=== PATIENT | male | born 1955 | race Caucasian/White ===

== ENCOUNTER 2016-04-04 | Outpatient (CLI) | payer MEDICAID | END 2016-04-04 16:48 | disposition EMS.NT | DX: Z03.89 Encounter for observation for other suspected diseases and conditions ruled out (principal) ==

== ENCOUNTER 2016-04-22 14:26 | Outpatient (CLI) | payer MEDICAID | END 2016-04-22 14:27 | disposition home or self-care (01) | DX: M19.012 Primary osteoarthritis, left shoulder (principal) ==

== ENCOUNTER 2016-07-15 02:54 | Outpatient (CLI) | payer MEDICAID | END 2016-07-15 02:55 | disposition critical access hospital (66) | LOC: EMS 02:54 | PROVIDERS: ATTEND Surgery | DX: S01.01XA Laceration without foreign body of scalp, initial encounter (principal); W18.30XA Fall on same level, unspecified, initial encounter; Y93.01 Activity, walking, marching and hiking; Y92.410 Unspecified street and highway as the place of occurrence of the external cause | CPT/HCPCS: A0425; A0429 ==

== ENCOUNTER 2016-07-15 03:12 | Emergency (ER) | payer MEDICAID ==
[2016-07-15] MEDS ORDERED: BACITRACIN OINT TOP STA (03:19)
[2016-07-15] MEDS ORDERED: TETANUS/DIPHTHERIA/PERTUSSIS 0.5 ML SYRINGE IM ONE ×2 (03:19→03:21)
[2016-07-15] MEDS ORDERED: LIDOCAINE 1%-EPI 1:100000 20 ML MDV ONE (03:41)
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
--- NOTE | 2016-07-15 04:44 | CT Preliminary Report ---
Exam: CT Head W/O IMPRESSION: No evidence of hemorrhage or other acute intra-cranial process. [facility] SITE ID: [id number]
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
[2016-07-15 04:57] VITALS: BP 132/75
== END 2016-07-15 05:06 | disposition home or self-care (01) ==
LOC: EDUNIT# → ED 03:12
DX: S01.01XA Laceration without foreign body of scalp, initial encounter (principal); W01.0XXA Fall on same level from slipping, tripping and stumbling without subsequent striking against object, initial encounter; Y93.01 Activity, walking, marching and hiking; Y92.481 Parking lot as the place of occurrence of the external cause; Z23 Encounter for immunization; I10 Essential (primary) hypertension; J44.9 Chronic obstructive pulmonary disease, unspecified; M19.90 Unspecified osteoarthritis, unspecified site; F17.200 Nicotine dependence, unspecified, uncomplicated
CPT/HCPCS: 12002; 70450; 90471; 99283; 99284

== ENCOUNTER 2016-10-08 10:13 | Outpatient (CLI) | payer MEDICAID ==
[2016-10-08 14:00] LABS: BASOPHILS # (AUTO) 0.1 10^3/uL (0.0-0.1); BASOPHILS % (AUTO) 1.2 %; EOSINOPHILS # (AUTO) 0.1 10^3/uL (0.0-0.7); EOSINOPHILS % (AUTO) 1.7 %; HCT - HEMATOCRIT 43.6 % (42.0-52.0); HGB - HEMOGLOBIN 14.7 g/dL (14.0-18.0); LYMPHOCYTES # (AUTO) 1.2 10^3/uL (1.5-3.5); LYMPHOCYTES % (AUTO) 19.8 %; MEAN CORPUSCULAR HEMOGLOBIN 30.5 pg (27.0-31.0); MEAN CORPUSCULAR HGB CONC 33.7 g/dL (32.0-36.0); MEAN CORPUSCULAR VOLUME 90.4 fL (80.0-94.0); MEAN PLATELET VOLUME 9.6 fL (7.4-11.4); MONOCYTES # (AUTO) 0.6 10^3/uL (0.0-1.0); MONOCYTES % (AUTO) 10.2 %; NEUTROPHILS # (AUTO) 3.9 10^3/uL (1.5-6.6); NEUTROPHILS % (AUTO) 67.1 %; RED BLOOD COUNT 4.82 10^6/uL (4.70-6.10); RED CELL DISTRIBUTION WIDTH 14.1 % (12.0-15.0); UNCORRECTED WHITE BLOOD COUNT 5.8 x10^3/uL; WHITE BLOOD COUNT 5.8 x10^3/uL (4.8-10.8)
[2016-10-08 14:24] LABS: ALBUMIN/GLOBULIN RATIO 1.1 (1.0-2.2); BUN - BLOOD UREA NITROGEN 12 mg/dL (6-20); CALCIUM 8.8 mg/dL (8.5-10.3); CARBON DIOXIDE - CO2 27 mmol/L (21-32); CHLORIDE 106 mmol/L (101-111); CHOL/HDL RATIO 3.8 (<5.0); CHOLESTEROL 188 mg/dL; CREATININE 0.8 mg/dL (0.6-1.2); GFR - MDRD 99 (>89); GLUCOSE 90 mg/dL (70-100); HDL CHOLESTEROL 50 mg/dL; POTASSIUM 3.8 mmol/L (3.5-5.0); SODIUM 139 mmol/L (135-145); TOTAL PROTEIN 7.5 g/dL (6.7-8.2)
[2016-10-08 14:40] LABS: LDL/HDL RATIO 2.5 (<3.6); TRIGLYCERIDES 55 mg/dL; VLDL CHOLESTEROL 11 mg/dL
== END 2016-10-08 10:14 | disposition home or self-care (01) ==
LOC: LAB.N 10:13
PROVIDERS: ATTEND Family Medicine
DX: F17.210 Nicotine dependence, cigarettes, uncomplicated (principal); I10 Essential (primary) hypertension
CPT/HCPCS: 36415; 80053; 80061; 85025

== ENCOUNTER 2017-07-15 08:59 | Day surgery (SDC) | payer MEDICAID ==
[~2017-07-15 08:59] MED LIST: BUPIVACAINE 0.5% PF 30 ML VIAL ONE; ceFAZolin 2 GM/50 ML 2 GM/50 ML BAG IV ONE
[2017-07-15] MEDS ORDERED: LACTATED RINGERS 1,000 ML IV ONE ×2 (09:04→13:20)
[2017-07-15] MEDS ORDERED: BUPIVACAINE 0.5% PF 30 ML VIAL SUBQ ONE ×2 (10:31)
[2017-07-15] MEDS ORDERED: ROCURONIUM 50 MG/5 ML VIAL IVP ONE (11:00)
[2017-07-15] MEDS ORDERED: ePHEDrine 50 MG/ML AMP IVP ONE (11:00)
[2017-07-15] MEDS ORDERED: GLYCOPYRROLATE 1 MG/5 ML VIAL IVP ONE (11:00)
[2017-07-15] MEDS ORDERED: MIDAZOLAM 2 MG/2 ML VIAL IVP ONE (11:00)
[2017-07-15] MEDS ORDERED: PROPOFOL 200 MG/20 ML VIAL IVP ONE (11:00)
[2017-07-15] MEDS ORDERED: NEOSTIGMINE 1 MG/1 ML 10 ML MDV IVP ONE (11:00)
[2017-07-15] MEDS ORDERED: LIDOCAINE-MPF 2% 5 ML VIAL IM ONE (11:00)
[2017-07-15] MEDS ORDERED: fentaNYL 250 MCG/5 ML VIAL IVP ONE (11:00)
[2017-07-15] MEDS ORDERED: ONDANSETRON 4 MG/2 ML VIAL IVP ONE (11:00)
[2017-07-15] MEDS ORDERED: KETOROLAC 30 MG/ML VIAL ONE (14:11)
[2017-07-15] MEDS ORDERED: HYDROcod/ACETAM 5/325 MG TABLET ONE (15:12)
[2017-07-15 15:51] VITALS: BP 125/70
--- NOTE | 2017-07-18 10:34 | OPERATIVE REPORT ---
DATE OF SERVICE: 07/15/2017 Physician: Nicanor Aponte MD PREOPERATIVE DIAGNOSIS: 1. Recurrent left inguinal hernia. 2. Right inguinal hernia. POSTOPERATIVE DIAGNOSIS: 1. Recurrent left inguinal hernia. 2. Right direct/indirect inguinal hernia, large scrotal in nature. PROCEDURE PERFORMED: Laparoscopic repair of right inguinal hernia and recurrent left inguinal hernia. SURGEON: Nicanor Aponte MD ANESTHESIA: General. INDICATIONS FOR PROCEDURE: The patient is a 61-year-old male who had underwent a left inguinal hernia 3 years ago. He has complained of a right groin pain and swelling. On physical exam, he has right scrotal hernia and a recurrent left inguinal hernia. FINDINGS AT SURGERY: The patient had a recurrent left inguinal hernia. He also had a small direct on the right side along with a very large indirect inguinal hernia. This was repaired with ProGrip laparoscopic mesh bilaterally and secured with Secure straps. Because of the large nature of the hernia on the right side, it took at least an hour dissection in order to reduce the hernia sac in order to complete the procedure. DESCRIPTION OF PROCEDURE: After informed consent was obtained, the patient was taken to the operating room and placed in supine position. General endotracheal anesthesia was administered. The patient's abdomen was then prepped and draped in usual sterile fashion. An infraumbilical incision was made using a scalpel and a 11 mm Optiview trocar was inserted through the fascia and into the abdominal cavity under direct vision. The abdomen was then insufflated. Looking inside no injuries were noted. A 5 mm port was then placed in the right mid and left mid abdominal wall under direct vision. The patient was found to have bilateral inguinal hernias with the right side being quite large. The peritoneum was then incised from above the anterior superior iliac spine to the midline. The patient's peritoneum was then grasped going inferiorly and a preperitoneal fat was dissected off. The hernia sac was then encountered. At this point, it took about an hour in order to reduce the hernia sac. The testicular vessels as well as the vas deferens was then dissected off the hernia sac, which was then removed from the inguinal canal. The peritoneum was then dissected back to the anterior superior iliac spine and off the pubic bone. At this point, there was adequate dissection in order to place mesh. The patient also had a small direct inguinal hernia. Attention was then turned to the left side. The peritoneum was then incised in likewise fashion with dissection proceeding similar as the right side. A hernia sac was then encountered that was moderate size for the recurrent hernia. The hernia sac was then dissected off the testicular vessels and vas deferens and out of the inguinal canal. Again, the peritoneum was dissected back to the anterior superior iliac spine and off the pubic bone. The ProGrip laparoscopic mesh was then placed through the port and overlying the myopectineal orifice on the right side. It covered the internal inguinal ring and the floor of the inguinal canal well. However, because this was a large hernia, I placed SecureStrap in order to keep the mesh in good position. The Securestraps were used to secure the mesh to the Jason's ligament as well as to the overlying rectus muscle. This was done likewise to the left side. With the mesh in good position covering the myopectineal orifice well, the peritoneum was then closed bilaterally. This was done by using a running 3-0 Vicryl suture. The ports were then removed and the abdomen was then desufflated. The umbilical fascial defect was closed using 0 Vicryl suture. Skin incisions were closed using 4-0 Monocryl subcutaneous stitches. Dermabond was then applied. The patient was then awakened, extubated, and taken out of the operating room in stable condition. ESTIMATED BLOOD LOSS: Less than 10 mL COMPLICATIONS: None. CONDITION OF THE PATIENT PROCEDURE: Stable. SPECIMENS: None. DRAINS AND PACKS: None. CLASSIFICATION OF WOUND: Clean. TD: 07/18/2017 09:12 KEELEY
== END 2017-07-15 09:00 | disposition home or self-care (01) ==
LOC: SDS 08:59
PROVIDERS: ATTEND Surgery
PROC: 0YUA4JZ Supplement Bilateral Inguinal Region with Synthetic Substitute, Percutaneous Endoscopic Approach (ICD-10-PCS; principal; 2017-07-15 09:45)
DX: K40.91 Unilateral inguinal hernia, without obstruction or gangrene, recurrent (principal); K40.90 Unilateral inguinal hernia, without obstruction or gangrene, not specified as recurrent; I10 Essential (primary) hypertension; J44.9 Chronic obstructive pulmonary disease, unspecified; F17.210 Nicotine dependence, cigarettes, uncomplicated
CPT/HCPCS: 49650; 49651; A9270; C1781; J0690; J3010; J7120

== ENCOUNTER 2017-11-23 10:27 | Outpatient (CLI) | payer MEDICAID ==
[2017-11-23 12:58] LABS: BASOPHILS # (AUTO) 0.1 10^3/uL (0.0-0.1); BASOPHILS % (AUTO) 1.4 %; EOSINOPHILS # (AUTO) 0.1 10^3/uL (0.0-0.7); EOSINOPHILS % (AUTO) 1.7 %; HGB - HEMOGLOBIN 14.4 g/dL (14.0-18.0); LYMPHOCYTES # (AUTO) 1.2 10^3/uL (1.5-3.5); LYMPHOCYTES % (AUTO) 21.8 %; MEAN CORPUSCULAR HEMOGLOBIN 30.8 pg (27.0-31.0); MEAN CORPUSCULAR HGB CONC 34.3 g/dL (32.0-36.0); MEAN CORPUSCULAR VOLUME 89.9 fL (80.0-94.0); MEAN PLATELET VOLUME 9.5 fL (7.4-11.4); MONOCYTES # (AUTO) 0.5 10^3/uL (0.0-1.0); MONOCYTES % (AUTO) 8.8 %; NEUTROPHILS # (AUTO) 3.5 10^3/uL (1.5-6.6); NEUTROPHILS % (AUTO) 66.3 %; PLT - PLATELET COUNT 223 10^3/uL (130-450); RED BLOOD COUNT 4.68 10^6/uL (4.70-6.10); RED CELL DISTRIBUTION WIDTH 14.2 % (12.0-15.0); WHITE BLOOD COUNT 5.3 x10^3/uL (4.8-10.8)
[2017-11-23 13:23] LABS: ALBUMIN 3.9 g/dL (3.2-5.5); ALBUMIN/GLOBULIN RATIO 1.1 (1.0-2.2); ALKALINE PHOSPHATASE 63 IU/L (42-121); ALT ALANINE AMINOTRANSFERASE 15 IU/L (10-60); AST ASPARTATE AMINOTRANSFERASE 15 IU/L (10-42); BILIRUBIN,TOTAL 0.6 mg/dL (0.2-1.0); BUN - BLOOD UREA NITROGEN 15 mg/dL (6-20); CALCIUM 8.6 mg/dL (8.5-10.3); CARBON DIOXIDE - CO2 26 mmol/L (21-32); CHLORIDE 105 mmol/L (101-111); CHOL/HDL RATIO 3.3 (<5.0); CHOLESTEROL 177 mg/dL; CREATININE 0.8 mg/dL (0.6-1.2); GFR - MDRD 99 (>89); GLUCOSE 98 mg/dL (70-100); HDL CHOLESTEROL 53 mg/dL; LDL CHOLESTEROL,CALCULATED 111 mg/dL; LDL/HDL RATIO 2.1 (<3.6); SODIUM 137 mmol/L (135-145); TOTAL PROTEIN 7.3 g/dL (6.7-8.2); VLDL CHOLESTEROL 13 mg/dL
== END 2017-11-23 10:28 ==
LOC: LAB.N 10:27
PROVIDERS: ATTEND Family Medicine
DX: I10 Essential (primary) hypertension (principal)
CPT/HCPCS: 36415; 80053; 80061; 83721; 85025

== ENCOUNTER 2018-02-09 10:00 | Emergency (ER) | payer MEDICAID ==
--- NOTE | 2018-02-09 11:22 | XRAY Report ---
Reason: pain Procedure Date: 02/09/2018 Accession Number: [id number] / [id number] Procedure: XR - Wrist 4 View LT CPT Code: FULL RESULT: EXAM: LEFT WRIST RADIOGRAPHY EXAM DATE: 02/09/2018 10:57 AM. CLINICAL HISTORY: Pain. COMPARISON: None. TECHNIQUE: 3 views. FINDINGS: Bones: Possible dorsal bony fragment on lateral view possible triquetral. Joints: Osteophyte first metacarpocarpal joint. Soft Tissues: Normal. No soft tissue swelling. IMPRESSION: Possible dorsal fracture fragment ( triquetral?) on somewhat obliqued lateral view. DJD first MTP joint [facility]
[2018-02-09] MEDS ORDERED: MELOXICAM 7.5 MG TABLET PO STA (12:28)
--- NOTE | 2018-02-09 12:37 | ED Physician Documentation ---
History of Present Illness - Stated complaint Stated Complaint: LEFT HAND SWELLING - Chief complaint Chief Complaint: Ext Problem - History obtained from History obtained from: Patient - History of Present Illness Timing: Yesterday Pain level max: 8 Pain level now: 8 - Additonal information Additional information: L wrist pain since last night. Patient is right handed. 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 States intermittent numbness and tingling to fingers. Worse with movement and better with rest. No fevers. No recent injury. Review of Systems Constitutional: denies: Fever, Chills Respiratory: denies: Cough GI: denies: Vomiting PD PAST MEDICAL HISTORY - Past Medical History Cardiovascular: Hypertension Respiratory: COPD Endocrine/Autoimmune: None GI: None : None HEENT: Chronic vision loss, Other Psych: None Musculoskeletal: Osteoarthritis Derm: None - Past Surgical History Past Surgical History: Yes Derm: Debridement - Present Medications Home Medications: Ambulatory Orders Medication Instructions Recorded Confirmed Metoprolol Succinate 25 mg PO DAILY 07/14/17 07/15/17 cloNIDine [Catapres] 0.1 mg PO BID 07/14/17 07/15/17 Meloxicam [Mobic] 15 mg PO DAILY PRN #20 tablet 02/09/18 - Allergies Allergies/Adverse Reactions: Allergies Allergy/AdvReac Type Severity Reaction Status Date / Time Chlorine Allergy Anaphylaxis Uncoded 02/09/18 10:16 - Social History Does the pt smoke?: Yes Smoking Status: Current every day smoker Does the pt drink ETOH?: No Does the pt have substance abuse?: No - Immunizations Immunizations are current?: Yes - POLST Patient has POLST: No PD ED PE NORMAL - Vitals Vital signs reviewed: Yes - General General: Alert and oriented X 3, No acute distress - HEENT HEENT: Moist mucous membranes - Derm Derm: Warm and dry - Extremities Extremities: Other (L hand/wrist - Neurovascularly intact. Tender to to percussion over the carpal tunnel. No bony tenderness on exam. Limited range of motion secondary to pain.) - Neuro Neuro: Alert and oriented X 3 Results - Vitals Vitals: Vital Signs - 24 hr 02/09/18 10:14 Temperature 36.7 C Heart Rate 60 Respiratory 20 Rate Blood Pressure 155/75 H O2 Saturation 96 Oxygen O2 Source Room air - Rads (name of study) L wrist Radiology: Prelim report reviewed, EMP read contemporaneously, See rad report (Possible dorsal fracture fragment ( triquetral?) on somewhat obliqued lateral view. DJD first MTP joint ) PD MEDICAL DECISION MAKING - ED course Complexity details: reviewed results, re-evaluated patient, considered differential, d/w patient ED course: 62-year-old male with what appears to be carpal tunnel on exam. Will place in a Velcro wrist splint and follow-up with his doctor. Also placed on anti- inflammatories. Positive Phalen and Tinel sign. Possible dorsal fracture fragment on the wrist x-ray does not correlate with any tenderness on exam. We will have this reevaluated with his doctor. Patient counseled regarding signs and symptoms for which I believe and urgent re-evaluation would be necessary. Patient with good understanding of and agreement to plan and is comfortable going home at this time This document was made in part using voice recognition software. While efforts are made to proofread this document, sound alike and grammatical errors may occur. No overlying skin changes to the area Departure - Departure Disposition: 01 Home, Self Care Clinical Impression: Carpal tunnel syndrome of left wrist Condition: Good Instructions: ED Carpal Tunnel Follow-Up: your,doctor in 1 week [Other] Prescriptions: Meloxicam [Mobic] 15 mg PO DAILY PRN #20 tablet PRN Reason: pain Comments: Wear the splint, especially at night to help with the inflammation in your wrist. Follow-up with your doctor as you may benefit from physical therapy or other treatment modalities. Return if you worsen
[2018-02-09 12:54] VITALS: BP 148/69
== END 2018-02-09 12:57 | disposition home or self-care (01) ==
LOC: ED 10:00
DX: G56.02 Carpal tunnel syndrome, left upper limb (principal); I10 Essential (primary) hypertension; F17.200 Nicotine dependence, unspecified, uncomplicated
CPT/HCPCS: 73110; 99283; A9270

== ENCOUNTER 2018-11-23 10:52 | Outpatient (CLI) | payer MEDICAID | END 2018-11-23 10:53 | disposition critical access hospital (66) | LOC: EMS 10:52 | PROVIDERS: ATTEND Surgery | DX: M43.6 Torticollis (principal); M54.9 Dorsalgia, unspecified; W18.39XA Other fall on same level, initial encounter | CPT/HCPCS: A0425; A0429 ==

== ENCOUNTER 2018-11-23 11:10 | Emergency (ER) | payer MEDICAID ==
[2018-11-23] MEDS ORDERED: HYDROcod/ACETAM 5/325 MG TABLET PO STA (11:36)
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
--- NOTE | 2018-11-23 12:12 | XRAY Report ---
Reason: upper back contusion from fall Procedure Date: 11/23/2018 Accession Number: [id number] / [id number] Procedure: XR - Chest 2 View X-Ray CPT Code: 42198 FULL RESULT: EXAM: CHEST RADIOGRAPHY EXAM DATE: 11/23/2018 12:01 PM. CLINICAL HISTORY: Upper back contusion from fall. COMPARISON: None. TECHNIQUE: 2 views. FINDINGS: Lungs/Pleura: Lung volumes are low. Central bronchial wall thickening is seen. No other focal airspace consolidation. No pleural effusion or pneumothorax. Mediastinum: Normal heart size and mediastinum. Other: None. IMPRESSION: 1. Central bronchial wall thickening could reflect underlying reactive airways or bronchitis. 2. No focal airspace consolidation worrisome for pneumonia is seen. [facility]
--- NOTE | 2018-11-23 12:42 | CT Report ---
Reason: GLF neck and upper back pain Procedure Date: 11/23/2018 Accession Number: [id number] / [id number] Procedure: CT - CERVICAL SPINE WO CPT Code: FULL RESULT: EXAM: CT CERVICAL SPINE WITHOUT CONTRAST COMPARISON: None. CLINICAL HISTORY: GLF neck and upper back pain. TECHNIQUE: Axial CT images were obtained through the cervical spine without contrast. Coronal and sagittal reconstructions are created from source data. In accordance with CT protocol optimization, one or more of the following dose reduction techniques were utilized for this exam: automated exposure control, adjustment of mA and/or KV based on patient size, or use of iterative reconstructive technique. FINDINGS: Alignment: Unremarkable. Bones: No fractures. Hyperostotic changes related to spondylosis. Spondylosis: Moderate to severe multilevel spondylosis with disk space narrowing, osteophytes and facet osteoarthritis. Ventral osteophytes are quite prominent from C4-C7. There is mild posterior facet osteoarthritis. Other: The paravertebral and prevertebral soft tissues are unremarkable. The lung apices are clear. IMPRESSION: Multilevel spondylosis. No fracture or acute subluxation. [facility]
[2018-11-23 13:01] VITALS: BP 135/75
== END 2018-11-23 13:11 | disposition home or self-care (01) ==
LOC: EDSEX → EDUNIT# → ED 11:10
DX: S16.1XXA Strain of muscle, fascia and tendon at neck level, initial encounter (principal); S20.229A Contusion of unspecified back wall of thorax, initial encounter; W10.2XXA Fall (on)(from) incline, initial encounter; Y93.01 Activity, walking, marching and hiking; Y92.828 Other wilderness area as the place of occurrence of the external cause; M47.812 Spondylosis without myelopathy or radiculopathy, cervical region; I10 Essential (primary) hypertension; F17.200 Nicotine dependence, unspecified, uncomplicated
CPT/HCPCS: 71046; 72125; 99284; A9270

== ENCOUNTER 2019-02-27 10:58 | Emergency (ER) | payer MEDICAID ==
--- NOTE | 2019-02-27 12:11 | ED Physician Documentation ---
PD HPI BACK INJURY - Stated complaint Stated Complaint: BACK PX - History obtained from History obtained from: Patient - History of Present Illness Location: Left (For the last 2 weeks he has had left flank pain that is worse with bending forward and leaning and twisting. There is no urinary complaints associated with it, no weight loss. No weakness, numbness, or tingling of the saddle area or extremities. He has not taken anything for it. There was no injury.) Review of Systems Constitutional: denies: Fever, Chills Cardiac: reports: Reviewed and negative Respiratory: reports: Reviewed and negative PD PAST MEDICAL HISTORY - Past Medical History Cardiovascular: Hypertension Respiratory: COPD Endocrine/Autoimmune: None GI: None : None HEENT: Chronic vision loss, Other Psych: None Musculoskeletal: Osteoarthritis, Chronic back pain Derm: None - Past Surgical History Past Surgical History: Yes Derm: Debridement - Present Medications Home Medications: Ambulatory Orders Medication Instructions Recorded Confirmed Metoprolol Succinate 25 mg PO DAILY 07/14/17 07/15/17 cloNIDine [Catapres] 0.1 mg PO BID 07/14/17 07/15/17 Meloxicam [Mobic] 15 mg PO DAILY PRN #20 tablet 02/09/18 Cyclobenzaprine [Flexeril] 10 mg PO TID PRN #20 tablet 11/23/18 Hydrocodone/Acetaminophen 1 - 2 each PO Q6H PRN #14 tablet 11/23/18 [Hydrocodon-Acetaminophen 5-325] Cyclobenzaprine [Flexeril] 10 mg PO TID PRN #20 tablet 02/27/19 - Allergies Allergies/Adverse Reactions: Allergies Allergy/AdvReac Type Severity Reaction Status Date / Time Chlorine Allergy Anaphylaxis Uncoded 11/23/18 11:19 - Social History Does the pt smoke?: Yes Smoking Status: Current every day smoker Does the pt drink ETOH?: No Does the pt have substance abuse?: No - Immunizations Immunizations are current?: Yes - POLST Patient has POLST: No PD ED PE NORMAL - Vitals Vital signs reviewed: Yes - General General: Alert and oriented X 3, No acute distress - Respiratory Respiratory: No respiratory distress, Clear bilaterally - Abdomen Abdomen: Normal bowel sounds, Soft, Non tender - Back Back: No CVA TTP, No spinal TTP - Derm Derm: Normal color, Warm and dry - Extremities Extremities: Other (The patient has equal and normal Achilles and patellar reflexes bilaterally. Normal sensation in all areas of the legs. Patient denies saddle anesthesia. Normal strength in flexion-extension at the ankles, knees, and flexion of the hips.) - Neuro Neuro: Alert and oriented X 3, Normal speech Results - Vitals Vitals: Vital Signs - 24 hr 02/27/19 11:32 Temperature 36.4 C L Heart Rate 65 Respiratory 18 Rate Blood Pressure 158/61 H O2 Saturation 97 Oxygen O2 Source Room air - Labs Labs: Laboratory Tests 02/27/19 12:15 Urine Color YELLOW Urine Clarity CLEAR Urine pH 5.5 Ur Specific [place] 1.025 Urine Protein NEGATIVE Urine Glucose (UA) NEGATIVE Urine Ketones NEGATIVE Urine Occult Blood NEGATIVE Urine Nitrite NEGATIVE Urine Bilirubin NEGATIVE Urine Urobilinogen 0.2 (NORMAL) Ur Leukocyte Esterase NEGATIVE Ur Microscopic Review NOT INDICATED Urine Culture Comments NOT INDICATED PD MEDICAL DECISION MAKING - ED course ED course: Seems like uncomplicated muscular low back pain. Urinalysis will be done to risk stratify for renal colic but the pattern is really not consistent with that. Urinalysis with was without hematuria, as such I really doubt renal colic given again the pattern consistent with a muscular pain and he is prescribed a muscle relaxer. Departure - Departure Disposition: 01 Home, Self Care Clinical Impression: Back pain Qualifiers: Back pain location: low back pain Chronicity: acute Back pain laterality: left Sciatica presence: without sciatica Qualified Code(s): M54.5 - Low back pain Condition: Good Record reviewed to determine appropriate education?: Yes Instructions: ED Neck Back Pain General Prescriptions: Cyclobenzaprine [Flexeril] 10 mg PO TID PRN #20 tablet PRN Reason: Spasms Comments: Your examination and history today is consistent with pain of your left back. You can use heat as needed and the muscle relaxer 2. Do not drink or drive with the muscle relaxer. Follow-up with your doctor within the week for recheck. Return for new or worsening symptoms. Your blood pressure was elevated today on check into the emergency department. This does not mean that you have hypertension, it is a common phenomenon to come to the emergency department and have elevated blood pressure. I recommend that you see your primary care physician within the week to have it rechecked when you are feeling better. Forms: Activity restrictions
[2019-02-27 12:20] LABS: BILIRUBIN,URINE NEGATIVE (NEGATIVE); GLUCOSE, URINE (UA) NEGATIVE (NEGATIVE); KETONES,URINE (UA) NEGATIVE (NEGATIVE); LEUKOCYTE ESTERASE, URINE NEGATIVE (NEGATIVE); NITRITE,URINE NEGATIVE (NEGATIVE); OCCULT BLOOD,URINE NEGATIVE (NEGATIVE); PH,URINE 5.5 PH (5.0-7.5); PROTEIN,URINE NEGATIVE (NEGATIVE); UROBILINOGEN,URINE 0.2 (NORMAL) E.U./dL (NORMAL)
[2019-02-27 12:21] LABS: CLARITY,URINE CLEAR (CLEAR)
[2019-02-27 12:54] VITALS: BP 143/77
== END 2019-02-27 12:58 | disposition home or self-care (01) ==
LOC: ED 10:58
DX: M54.5 Low back pain (principal); I10 Essential (primary) hypertension; F17.200 Nicotine dependence, unspecified, uncomplicated
CPT/HCPCS: 81001; 81003; 87086; 99283; 99284

== ENCOUNTER 2019-03-06 08:00 | Outpatient (CLI) | payer MEDICAID ==
[2019-03-06 18:57] LABS: BASOPHILS # (AUTO) 0.1 10^3/uL (0.0-0.1); BASOPHILS % (AUTO) 1.2 %; EOSINOPHILS # (AUTO) 0.1 10^3/uL (0.0-0.7); EOSINOPHILS % (AUTO) 1.6 %; HGB - HEMOGLOBIN 15.3 g/dL (14.0-18.0); LYMPHOCYTES # (AUTO) 1.3 10^3/uL (1.5-3.5); LYMPHOCYTES % (AUTO) 25.7 %; MEAN CORPUSCULAR HEMOGLOBIN 29.1 pg (27.0-31.0); MEAN CORPUSCULAR VOLUME 90.9 fL (80.0-94.0); MEAN PLATELET VOLUME 11.6 fL (7.4-11.4); MONOCYTES # (AUTO) 0.5 10^3/uL (0.0-1.0); MONOCYTES % (AUTO) 9.2 %; NEUTROPHILS # (AUTO) 3.1 10^3/uL (1.5-6.6); NEUTROPHILS % (AUTO) 61.9 %; PLT - PLATELET COUNT 224 10^3/uL (130-450); RED BLOOD COUNT 5.26 10^6/uL (4.70-6.10); RED CELL DISTRIBUTION WIDTH 13.1 % (12.0-15.0)
[2019-03-06 19:26] LABS: ALBUMIN 4.3 g/dL (3.2-5.5); ALBUMIN/GLOBULIN RATIO 1.2 (1.0-2.2); ALKALINE PHOSPHATASE 61 IU/L (42-121); ALT ALANINE AMINOTRANSFERASE 24 IU/L (10-60); AST ASPARTATE AMINOTRANSFERASE 20 IU/L (10-42); BILIRUBIN,TOTAL 0.9 mg/dL (0.2-1.0); BUN - BLOOD UREA NITROGEN 16 mg/dL (6-20); CALCIUM 8.8 mg/dL (8.5-10.3); CARBON DIOXIDE - CO2 27 mmol/L (21-32); CHLORIDE 101 mmol/L (101-111); CHOLESTEROL 190 mg/dL; CREATININE 0.9 mg/dL (0.6-1.2); GFR - MDRD 86 (>89); GLUCOSE 90 mg/dL (70-100); HDL CHOLESTEROL 48 mg/dL; SODIUM 138 mmol/L (135-145); TOTAL PROTEIN 7.9 g/dL (6.7-8.2); VLDL CHOLESTEROL 13 mg/dL
[2019-03-06 19:27] LABS: LDL CHOLESTEROL,CALCULATED 129 mg/dL; LDL/HDL RATIO 2.7 (<3.6)
== END 2019-03-06 23:59 | disposition home or self-care (01) ==
LOC: LAB.N 08:00
PROVIDERS: ATTEND Physician Assistant Medical
DX: Z00.00 Encounter for general adult medical examination without abnormal findings (principal); I10 Essential (primary) hypertension
CPT/HCPCS: 36415; 80050; 80061; 82306; 83721; 84153

== ENCOUNTER 2021-01-05 08:00 | Outpatient (CLI) | payer MEDICAID ==
[2021-01-05 18:03] LABS: BASOPHILS # (AUTO) 0.1 10^3/uL (0.0-0.1); EOSINOPHILS # (AUTO) 0.1 10^3/uL (0.0-0.7); EOSINOPHILS % (AUTO) 1.9 %; HCT - HEMATOCRIT 44.8 % (42.0-52.0); HGB - HEMOGLOBIN 15.2 g/dL (14.0-18.0); LYMPHOCYTES # (AUTO) 1.3 10^3/uL (1.5-3.5); LYMPHOCYTES % (AUTO) 21.3 %; MEAN CORPUSCULAR HEMOGLOBIN 30.6 pg (27.0-31.0); MEAN CORPUSCULAR HGB CONC 33.9 g/dL (32.0-36.0); MEAN CORPUSCULAR VOLUME 90.1 fL (80.0-94.0); MEAN PLATELET VOLUME 11.5 fL (7.4-11.4); MONOCYTES # (AUTO) 0.6 10^3/uL (0.0-1.0); MONOCYTES % (AUTO) 10.3 %; PLT - PLATELET COUNT 236 10^3/uL (130-450); RED BLOOD COUNT 4.97 10^6/uL (4.70-6.10); RED CELL DISTRIBUTION WIDTH 12.9 % (12.0-15.0); WHITE BLOOD COUNT 6.2 x10^3/uL (4.8-10.8)
[2021-01-05 18:30] LABS: ALBUMIN 3.9 g/dL (3.2-5.5); ALBUMIN/GLOBULIN RATIO 1.1 (1.0-2.2); ALKALINE PHOSPHATASE 56 IU/L (42-121); ALT ALANINE AMINOTRANSFERASE 28 IU/L (10-60); AST ASPARTATE AMINOTRANSFERASE 19 IU/L (10-42); BILIRUBIN,TOTAL 0.7 mg/dL (0.2-1.0); BUN - BLOOD UREA NITROGEN 19 mg/dL (6-20); CALCIUM 8.8 mg/dL (8.5-10.3); CARBON DIOXIDE - CO2 24 mmol/L (21-32); CHLORIDE 101 mmol/L (101-111); CHOL/HDL RATIO 4.7 (<5.0); CHOLESTEROL 198 mg/dL; GFR - MDRD 75 (>89); GLUCOSE 116 mg/dL (70-100); HDL CHOLESTEROL 42 mg/dL; LDL CHOLESTEROL,CALCULATED 133 mg/dL; LDL/HDL RATIO 3.2 (<3.6); POTASSIUM 3.6 mmol/L (3.5-5.0); SODIUM 136 mmol/L (135-145); TOTAL PROTEIN 7.3 g/dL (6.7-8.2); TRIGLYCERIDES 115 mg/dL; VLDL CHOLESTEROL 23 mg/dL
[2021-01-05 18:34] LABS: CREATININE,URINE 224.8 mg/dL; MICROALBUM/CREATININE RATIO,UR 4.4 ug/mg (<30.0)
[2021-01-05 18:41] LABS: THYROID STIMULATING HORMONE 0.97 uIU/mL (0.34-5.60)
== END 2021-01-05 23:59 ==
LOC: LAB.WCP 08:00
PROVIDERS: ATTEND Internal Medicine
DX: Z00.00 Encounter for general adult medical examination without abnormal findings (principal); I10 Essential (primary) hypertension; E55.9 Vitamin D deficiency, unspecified
CPT/HCPCS: 36415; 80050; 80061; 82043; 82306; 82570; 83721; 84153

== ENCOUNTER 2021-03-01 18:29 | Outpatient (CLI) | payer MEDICAID ==
[2021-03-02] MEDS ORDERED: iohexoL-300 100 ML VIAL ONE (13:47)
== END 2021-03-01 18:30 ==
LOC: EMS 18:29
DX: R11.2 Nausea with vomiting, unspecified (principal)

== ENCOUNTER 2021-03-02 12:31 | Emergency (ER) | payer MEDICAID ==
[2021-03-02] MEDS ORDERED: SODIUM CHLORIDE 0.9% 1,000 ML IV STA ×2 (12:52)
[2021-03-02] MEDS ORDERED: ONDANSETRON 4 MG/2 ML VIAL IVP STA (12:52)
[2021-03-02 12:59] LABS: BASOPHILS % (AUTO) 0.2 %; EOSINOPHILS % (AUTO) 0.1 %; HCT - HEMATOCRIT 47.3 % (42.0-52.0); HGB - HEMOGLOBIN 16.2 g/dL (14.0-18.0); LYMPHOCYTES # (AUTO) 0.7 10^3/uL (1.5-3.5); LYMPHOCYTES % (AUTO) 3.8 %; MEAN CORPUSCULAR HEMOGLOBIN 30.8 pg (27.0-31.0); MEAN CORPUSCULAR HGB CONC 34.2 g/dL (32.0-36.0); MEAN CORPUSCULAR VOLUME 89.9 fL (80.0-94.0); MONOCYTES % (AUTO) 5.5 %; NEUTROPHILS # (AUTO) 16.1 10^3/uL (1.5-6.6); RED BLOOD COUNT 5.26 10^6/uL (4.70-6.10); RED CELL DISTRIBUTION WIDTH 12.6 % (12.0-15.0); WHITE BLOOD COUNT 17.9 x10^3/uL (4.8-10.8)
[2021-03-02 13:01] LABS: SLIDE REVIEW? Indicated
[2021-03-02 13:03] LABS: BILIRUBIN,URINE NEGATIVE (NEGATIVE); GLUCOSE, URINE (UA) NEGATIVE (NEGATIVE); KETONES,URINE (UA) NEGATIVE (NEGATIVE); LEUKOCYTE ESTERASE, URINE NEGATIVE (NEGATIVE); NITRITE,URINE NEGATIVE (NEGATIVE); OCCULT BLOOD,URINE TRACE-INTA (NEGATIVE); PROTEIN,URINE 30 mg/dL (NEGATIVE); UROBILINOGEN,URINE 1 (NORMAL) E.U./dL (NORMAL)
[2021-03-02 13:14] LABS: CLARITY,URINE CLEAR (CLEAR)
[2021-03-02 13:21] LABS: ALBUMIN 4.2 g/dL (3.2-5.5); ALBUMIN/GLOBULIN RATIO 1.1 (1.0-2.2); BILIRUBIN,TOTAL 0.8 mg/dL (0.2-1.0); CALCIUM 8.8 mg/dL (8.5-10.3); POTASSIUM 3.2 mmol/L (3.5-5.0); TOTAL PROTEIN 8.1 g/dL (6.7-8.2)
[2021-03-02 13:26] LABS: BACTERIA,URINE None Seen /HPF (None Seen); RBC,URINE 0-5 /HPF (0-5); SQUAMOUS EPITHELIAL CELL,UR NONE SEEN (<= Few); WBC,URINE 0-3 /HPF (0-3)
[2021-03-02 13:32] LABS: PLATELET MORPHOLOGY PLATELET CLUMPING (NORMAL); RBC MORPHOLOGY (MULTIPLE) NORMAL APPEARANCE (NORMAL)
--- NOTE | 2021-03-02 13:40 | ED Physician Documentation ---
History of Present Illness - Stated complaint Stated Complaint: DEHYDRATION,VOMITING,WEAK - Chief complaint Chief Complaint: Abd Pain - History obtained from History obtained from: Patient - History of Present Illness Pain level max: 2 Pain level now: 2 - Additonal information Additional information: Patient is a 65-year-old male who presents to the emergency department stating that he had vomiting 3 nights ago. He states that he had no diarrhea but was having crampy abdominal pain at that time. He states that the nausea and vomit ing have resolved but he feels like he cannot keep himself hydrated now. He states he is also still having some diffuse abdominal pain. Described as mild cramping. He believes that he caused himself to vomit after taking vitamin D. No syncope or near syncope. No chest pain. No shortness of breath. No fevers. No chills. No recent travel. No recent antibiotics. Review of Systems Constitutional: denies: Fever, Chills Ears: denies: Ear pain Nose: denies: Rhinorrhea / runny nose, Congestion Throat: denies: Sore throat Cardiac: denies: Chest pain / pressure, Palpitations Respiratory: denies: Dyspnea, Cough Skin: denies: Rash Musculoskeletal: denies: Neck pain, Back pain Neurologic: denies: Headache PD PAST MEDICAL HISTORY - Past Medical History Past Medical History: Yes Cardiovascular: Hypertension Respiratory: COPD Endocrine/Autoimmune: None GI: None : None HEENT: Chronic vision loss, Other Psych: None Musculoskeletal: Osteoarthritis, Chronic back pain Derm: None - Past Surgical History Past Surgical History: Yes Derm: Debridement - Present Medications Home Medications: Ambulatory Orders Medication Instructions Recorded Confirmed Metoprolol Succinate 25 mg PO DAILY 07/14/17 07/15/17 cloNIDine [Catapres] 0.1 mg PO BID 07/14/17 07/15/17 Meloxicam [Mobic] 15 mg PO DAILY PRN #20 tablet 02/09/18 Cyclobenzaprine [Flexeril] 10 mg PO TID PRN #20 tablet 11/23/18 Hydrocodone/Acetaminophen 1 - 2 each PO Q6H PRN #14 tablet 11/23/18 [Hydrocodon-Acetaminophen 5-325] Cyclobenzaprine [Flexeril] 10 mg PO TID PRN #20 tablet 02/27/19 - Allergies Allergies/Adverse Reactions: Allergies Allergy/AdvReac Type Severity Reaction Status Date / Time Chlorine Allergy Anaphylaxis Uncoded 03/02/21 12:36 - Social History Does the pt smoke?: Yes Smoking Status: Current every day smoker Does the pt drink ETOH?: No Does the pt have substance abuse?: No - Immunizations Immunizations are current?: Yes - POLST Patient has POLST: No PD ED PE NORMAL - Vitals Vital signs reviewed: Yes - General General: Alert and oriented X 3, No acute distress - HEENT HEENT: Moist mucous membranes - Neck Neck: Supple, no meningeal sign - Cardiac Cardiac: RRR - Respiratory Respiratory: No respiratory distress, Clear bilaterally - Abdomen Abdomen: Non distended, Other (Soft mildly tender to palpation diffusely. No peritoneal signs) - Derm Derm: Warm and dry - Neuro Neuro: Alert and oriented X 3 - Psych Psych: Normal mood, Normal affect Results - Vitals Vitals: Vital Signs - 24 hr 03/02/21 03/02/21 03/02/21 12:36 15:20 15:30 Temperature 36.5 C Heart Rate 80 85 87 Respiratory 16 16 18 Rate Blood Pressure 167/64 H 147/79 H 147/79 H O2 Saturation 98 97 97 Oxygen O2 Source Room air - Labs Labs: Laboratory Tests 03/02/21 03/02/21 03/02/21 12:51 12:51 12:54 WBC 17.9 H RBC 5.26 Hgb 16.2 Hct 47.3 MCV 89.9 MCH 30.8 MCHC 34.2 RDW 12.6 Plt Count TNP MPV Not Reportable Neut # (Auto) 16.1 H Lymph # (Auto) 0.7 L [place] # (Auto) 1.0 Eos # (Auto) 0.0 Baso # (Auto) 0.0 Absolute Nucleated RBC 0.00 Nucleated RBC % 0.0 Manual Slide Review Indicated Platelet Morphology PLATELET CLUMPING RBC Morph Micro Appear NORMAL APPEARANCE Sodium 132 L Potassium 3.2 L Chloride 95 L Carbon Dioxide 26 Anion Gap 11.0 BUN 16 Creatinine 1.0 Estimated GFR (MDRD) 75 L Glucose 141 H Calcium 8.8 Total Bilirubin 0.8 AST 35 ALT 102 H Alkaline Phosphatase 71 Total Protein 8.1 Albumin 4.2 Globulin 3.9 Albumin/Globulin Ratio 1.1 Lipase 86 H Urine Color YELLOW Urine Clarity CLEAR Urine pH 6.0 Ur Specific [place] 1.025 Urine Protein 30 H Urine Glucose (UA) NEGATIVE Urine Ketones NEGATIVE Urine Occult Blood TRACE-INTA Urine Nitrite NEGATIVE Urine Bilirubin NEGATIVE Urine Urobilinogen 1 (NORMAL) Ur Leukocyte Esterase NEGATIVE Urine RBC 0-5 Urine WBC 0-3 Ur Squamous Epith Cells NONE SEEN Urine Bacteria None Seen Ur Microscopic Review INDICATED Urine Culture Comments NOT INDICATED - Rads (name of study) CT abd/pelvis Radiology: Final report received, EMP read contemporaneously, See rad report PD MEDICAL DECISION MAKING - ED course Complexity details: reviewed results, re-evaluated patient, considered differential, d/w patient ED course: 65-year-old male with what appears to be pancreatitis on CT scan. Does have a leukocytosis. Declines any pain medication and is tolerating p.o. without difficulty. Minimally elevated lipase. No evidence of gallstones. Denies any alcohol use. We will have him stop the losartan and his statin as these can cause pancreatitis. We will have him follow-up with his doctor next week for further evaluation. Patient is well-appearing, nontoxic. Afebrile. Patient counseled regarding signs and symptoms for which I believe and urgent re- evaluation would be necessary. Patient with good understanding of and agreement to plan and is comfortable going home at this time This document was made in part using voice recognition software. While efforts are made to proofread this document, sound alike and grammatical errors may occur. Departure - Departure Disposition: 01 Home, Self Care Clinical Impression: Pancreatitis Qualifiers: Chronicity: acute Pancreatitis type: unspecified pancreatitis type Acute pancreatitis complication: no infection or necrosis Qualified Code(s): K85.90 - Acute pancreatitis without necrosis or infection, unspecified Condition: Good Instructions: ED Pancreatitis Follow-Up: Arcadio Leal MD [Primary Care Provider] - Within 1 week Comments: The cause of your pancreatitis is unclear today. We will have you stop your losartan and your statin. These medications both can cause pancreatitis. Please follow-up with your doctor next week for repeat evaluation. Return if you worsen. Discharge Date/Time: 03/02/21 15:35
--- NOTE | 2021-03-02 14:52 | CT Report ---
PROCEDURE: Abdomen/Pelvis W INDICATIONS: diffuse abd pain, vomiting CONTRAST: IV CONTRAST: Isovue 300 ml: 100 PO CONTRAST: *NO PO CONTRAST TECHNIQUE: After the administration of IV contrast, 5 mm thick sections acquired from the diaphragms to the symp hysis. 5 mm thick coronal and sagittal reformats were acquired. For radiation dose reduction, the f ollowing was used: automated exposure control, adjustment of mA and/or kV according to patient size. COMPARISON: None. FINDINGS: Image quality: Excellent. ABDOMEN: Lung bases: Dependent atelectasis in posterior aspect of bilateral lung bases are seen. No pleural ef fusion or pneumothorax. Heart size is normal. Solid organs: Liver and spleen are normal in size and enhancement. Gallbladder contains a calcified stone near fundus of gallbladder and measures 1.8 cm in size. No gross gallbladder wall thickening o r pericholecystic fluid is seen. Biliary system is non dilated. Pancreas appears enlarged with exten sive peripancreatic fat stranding and mildly heterogeneous contrast enhancement. No discrete peripanc reatic fluid collection is seen. No adrenal nodules. Kidneys demonstrate normal size and enhancement , without hydronephrosis. Peritoneum and bowel: There is no bowel obstruction. No gross abnormal bowel wall thickening or mesen teric fat stranding. Appendix is visualized and is within normal limits. Mild sigmoid diverticulosis is seen without CT evidence of acute diverticulitis. No abscess collection. No free fluid or free air . Nodes and vessels: No retroperitoneal or mesenteric adenopathy by size criteria. Aorta and inferior vena cava are normal in size. Mild atherosclerotic calcifications in the abdominal aorta are seen. Miscellaneous: No ventral hernias. PELVIS: Genitourinary: Bladder wall thickness is normal. Miscellaneous: No inguinal hernias or adenopathy. Bones: No suspicious bony lesions. No vertebral body compression fractures. IMPRESSION: 1. Finding is concerning for acute pancreatitis. No peripancreatic fluid collection is seen at this t harvinder. Clinical correlation is recommended. 2. No bowel obstruction or abnormal bowel wall thickening. Normal appendix. No free fluid or free air . 3. Cholelithiasis. No definite CT evidence of acute cholecystitis. No biliary ductal dilatation. 4. Dependent atelectasis in posterior aspect of bilateral lung bases. Reviewed by: Parish Rai MD on 03/02/2021 2:51 PM PST Approved by: Parish aRi MD on 03/02/2021 2:51 PM PST Station ID: [id number]
[2021-03-02 15:20] VITALS: BP 147/79
[2021-03-02] MEDS ORDERED: iohexoL-300 100 ML VIAL IVP ONE (19:07)
== END 2021-03-02 15:35 | disposition home or self-care (01) ==
LOC: ED 12:31
DX: K85.90 Acute pancreatitis without necrosis or infection, unspecified (principal); I10 Essential (primary) hypertension; F17.200 Nicotine dependence, unspecified, uncomplicated
CPT/HCPCS: 36415; 80053; 81001; 81003; 83690; 85025; 87086; 96361; 96374; 99283

== ENCOUNTER 2021-03-03 20:20 | Outpatient (CLI) | payer MEDICAID | END 2021-03-03 20:21 | disposition home or self-care (01) | LOC: EMS 20:20 | DX: Z03.89 Encounter for observation for other suspected diseases and conditions ruled out (principal) ==

== ENCOUNTER 2021-03-04 10:04 | Outpatient (CLI) | payer MEDICAID | END 2021-03-04 10:05 | disposition EMS.NT | LOC: EMS 10:04 | DX: R10.10 Upper abdominal pain, unspecified (principal); R11.0 Nausea ==

== ENCOUNTER 2021-03-04 13:17 | Outpatient (CLI) | payer MEDICAID | END 2021-03-04 13:18 | disposition critical access hospital (66) | LOC: EMS 13:17 | DX: K85.90 Acute pancreatitis without necrosis or infection, unspecified (principal); E86.0 Dehydration; R11.2 Nausea with vomiting, unspecified; R53.1 Weakness | CPT/HCPCS: A0425; A0429; A0999 ==

== ENCOUNTER 2021-03-04 13:40 | Emergency (ER) | payer MEDICAID ==
--- NOTE | 2021-03-04 13:45 | ED Physician Documentation ---
History of Present Illness - Stated complaint Stated Complaint: WEAKNESS/SIDE PX - History obtained from History obtained from: Patient - Additonal information Additional information: The patient comes to the emergency department chief complaint of ongoing nausea and lower abdominal pain. He states he was seen several days ago and Diagnosed with pancreatitis, but was feeling so good after treatment in the emergency department but he declined to get the nausea medicine that he was prescribed. Patient states he went a couple days without eating and then has been trying to eat since, but it got some nauseated and vomiting. The patient states he does not feel any worse, just not really any better. No fevers or chills. No changes in his stools. No blood in his vomitus. No other complaints at this time. Review of Systems Ten Systems: 10 systems reviewed and negative Constitutional: reports: Reviewed and negative Eyes: reports: Reviewed and negative Ears: reports: Reviewed and negative Nose: reports: Reviewed and negative Throat: reports: Reviewed and negative Cardiac: reports: Reviewed and negative Respiratory: reports: Reviewed and negative GI: reports: Abdominal Pain, Nausea, Vomiting : reports: Reviewed and negative Skin: reports: Reviewed and negative Musculoskeletal: reports: Reviewed and negative Neurologic: reports: Reviewed and negative Psychiatric: reports: Reviewed and negative Endocrine: reports: Reviewed and negative Immunocompromised: reports: Reviewed and negative PD PAST MEDICAL HISTORY - Past Medical History Cardiovascular: Hypertension Respiratory: COPD Endocrine/Autoimmune: None GI: None : None HEENT: Chronic vision loss, Other Psych: None Musculoskeletal: Osteoarthritis, Chronic back pain Derm: None - Past Surgical History Past Surgical History: Yes Derm: Debridement - Present Medications Home Medications: Ambulatory Orders Medication Instructions Recorded Confirmed Metoprolol Succinate 25 mg PO DAILY 07/14/17 07/15/17 cloNIDine [Catapres] 0.1 mg PO BID 07/14/17 07/15/17 Meloxicam [Mobic] 15 mg PO DAILY PRN #20 tablet 02/09/18 Cyclobenzaprine [Flexeril] 10 mg PO TID PRN #20 tablet 11/23/18 Hydrocodone/Acetaminophen 1 - 2 each PO Q6H PRN #14 tablet 11/23/18 [Hydrocodon-Acetaminophen 5-325] Cyclobenzaprine [Flexeril] 10 mg PO TID PRN #20 tablet 02/27/19 Ondansetron Odt [Zofran] 4 mg TL Q6H PRN #10 tablet 03/04/21 - Allergies Allergies/Adverse Reactions: Allergies Allergy/AdvReac Type Severity Reaction Status Date / Time Chlorine Allergy Anaphylaxis Uncoded 03/04/21 13:44 - Social History Does the pt smoke?: Yes Smoking Status: Current every day smoker Does the pt drink ETOH?: No Does the pt have substance abuse?: No - Immunizations Immunizations are current?: Yes - POLST Patient has POLST: No PD ED PE NORMAL - Vitals Vital signs reviewed: Yes - General General: Alert and oriented X 3, No acute distress, Well developed/nourished - HEENT HEENT: Atraumatic, PERRL, EOMI, Moist mucous membranes - Cardiac Cardiac: RRR, No murmur - Respiratory Respiratory: No respiratory distress, Clear bilaterally - Abdomen Abdomen: Soft, Non distended, Other (Left upper and lower quadrant tenderness. Right lower quadrant tenderness. 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, Normal speech - Psych Psych: Normal mood, Normal affect Results - Vitals Vitals: Vital Signs - 24 hr 03/04/21 03/04/21 13:41 13:51 Temperature 37.1 C Heart Rate 90 78 Respiratory 16 16 Rate Blood Pressure 163/78 H 163/78 H O2 Saturation 97 97 Oxygen O2 Source Room air - Labs Labs: Laboratory Tests 03/04/21 03/04/21 03/04/21 13:47 13:47 14:29 WBC 13.4 H RBC 4.82 Hgb 14.6 Hct 41.8 L MCV 86.7 MCH 30.3 MCHC 34.9 RDW 12.0 Plt Count 202 MPV 11.1 Neut # (Auto) 11.6 H Lymph # (Auto) 0.6 L [place] # (Auto) 1.0 Eos # (Auto) 0.0 Baso # (Auto) 0.0 Absolute Nucleated RBC 0.00 Nucleated RBC % 0.0 Sodium 131 L Potassium 2.9 L Chloride 94 L Carbon Dioxide 25 Anion Gap 12.0 BUN 14 Creatinine 0.8 Estimated GFR (MDRD) 98 Glucose 121 H Calcium 8.0 L Total Bilirubin 0.9 AST 18 ALT 38 Alkaline Phosphatase 67 Total Protein 7.3 Albumin 3.3 Globulin 4.0 Albumin/Globulin Ratio 0.8 L Lipase 18 L Urine Color YELLOW Urine Clarity CLEAR Urine pH 6.0 Ur Specific [place] >=1.030 H Urine Protein 100 H Urine Glucose (UA) NEGATIVE Urine Ketones >=80 H Urine Occult Blood SMALL H Urine Nitrite NEGATIVE Urine Bilirubin NEGATIVE Urine Urobilinogen 2 H Ur Leukocyte Esterase NEGATIVE Urine RBC None Seen Urine WBC 0-3 Ur Squamous Epith Cells RARE Squamous Urine Bacteria Few Urine Casts 0-2 Hyaline Casts Urine Mucus Marked Strands Ur Microscopic Review INDICATED Urine Culture Comments NOT INDICATED PD MEDICAL DECISION MAKING - ED course Complexity details: reviewed results, re-evaluated patient, considered differential, d/w patient ED course: The patient was treated symptomatically in the emergency department and worked up with laboratory studies. The patient was found to be feeling better after symptomatic management. Labs showed that white blood cell count was improving and lipase had normalized. We discussed that patient is on the right track but probably needs a little nausea medicine for home. To this and prescribed oral dissolving Zofran for him. He should continue to drink clear liquids and he may try eating simple foods as tolerated. We have discussed the usual indications for return. Departure - Departure Disposition: Home, Self Care Clinical Impression: Vomiting Qualifiers: Vomiting type: bilious vomiting Nausea presence: with nausea Qualified Code(s): R11.14 - Bilious vomiting Abdominal pain Qualifiers: Abdominal location: lower abdomen, unspecified Qualified Code(s): R10.30 - Lower abdominal pain, unspecified Condition: Stable Instructions: ED Nausea Vomiting Prescriptions: Ondansetron Odt [Zofran] 4 mg TL Q6H PRN #10 tablet PRN Reason: Nausea / Vomiting Comments: Your pancreatitis is resolving. At this point in time, you should take the nausea medication and try to drink plenty of clear liquids. You can start eating little bits at a time as long as her stomach will tolerate. Make sure you can tolerate the clear liquids first though. Please follow-up with your primary care physician as needed. You develop fevers or jaundice, please return to the emergency department. Your prescription has been sent electronically transmitted to [facility] pharmacy.
[2021-03-04] MEDS ORDERED: ONDANSETRON 4 MG/2 ML VIAL IVP STA (13:46)
[2021-03-04] MEDS ORDERED: SODIUM CHLORIDE 0.9% 1,000 ML IV STA (13:46)
[2021-03-04] MEDS ORDERED: HYDROmorphone 1 MG/ML CARPUJECT IVP STA (13:46)
[2021-03-04 14:09] LABS: BASOPHILS % (AUTO) 0.3 %; EOSINOPHILS % (AUTO) 0.1 %; HCT - HEMATOCRIT 41.8 % (42.0-52.0); HGB - HEMOGLOBIN 14.6 g/dL (14.0-18.0); LYMPHOCYTES # (AUTO) 0.6 10^3/uL (1.5-3.5); LYMPHOCYTES % (AUTO) 4.7 %; MEAN CORPUSCULAR HEMOGLOBIN 30.3 pg (27.0-31.0); MEAN CORPUSCULAR HGB CONC 34.9 g/dL (32.0-36.0); MEAN CORPUSCULAR VOLUME 86.7 fL (80.0-94.0); MEAN PLATELET VOLUME 11.1 fL (7.4-11.4); MONOCYTES % (AUTO) 7.7 %; NEUTROPHILS # (AUTO) 11.6 10^3/uL (1.5-6.6); NEUTROPHILS % (AUTO) 86.5 %; PLT - PLATELET COUNT 202 10^3/uL (130-450); RED BLOOD COUNT 4.82 10^6/uL (4.70-6.10); WHITE BLOOD COUNT 13.4 x10^3/uL (4.8-10.8)
[2021-03-04 14:23] LABS: ALBUMIN 3.3 g/dL (3.2-5.5); ALBUMIN/GLOBULIN RATIO 0.8 (1.0-2.2); BILIRUBIN,TOTAL 0.9 mg/dL (0.2-1.0); CREATININE 0.8 mg/dL (0.6-1.2); POTASSIUM 2.9 mmol/L (3.5-5.0); TOTAL PROTEIN 7.3 g/dL (6.7-8.2)
[2021-03-04 14:42] LABS: GLUCOSE, URINE (UA) NEGATIVE (NEGATIVE); KETONES,URINE (UA) >=80 mg/dL (NEGATIVE); LEUKOCYTE ESTERASE, URINE NEGATIVE (NEGATIVE); NITRITE,URINE NEGATIVE (NEGATIVE); OCCULT BLOOD,URINE SMALL (NEGATIVE); PROTEIN,URINE 100 mg/dL (NEGATIVE); UROBILINOGEN,URINE 2 E.U./dL (NORMAL)
[2021-03-04 14:46] LABS: BILIRUBIN,URINE NEGATIVE (NEGATIVE); CLARITY,URINE CLEAR (CLEAR); ICTOTEST,URINE NEGATIVE
[2021-03-04 14:55] LABS: RBC,URINE None Seen /HPF (0-5); SQUAMOUS EPITHELIAL CELL,UR RARE Squamous (<= Few); WBC,URINE 0-3 /HPF (0-3)
[2021-03-04 14:56] LABS: BACTERIA,URINE Few /HPF (None Seen); CASTS, URINE 0-2 Hyaline Casts /LPF; MUCUS,URINE Marked Strands
[2021-03-04] MEDS ORDERED: POTASSIUM CHLORIDE 20 MEQ TABLET PO STA (15:08)
[2021-03-04 15:31] VITALS: BP 160/60
== END 2021-03-04 15:32 | disposition home or self-care (01) ==
LOC: ED 13:40
DX: R10.30 Lower abdominal pain, unspecified (principal); R11.2 Nausea with vomiting, unspecified; I10 Essential (primary) hypertension; F17.200 Nicotine dependence, unspecified, uncomplicated
CPT/HCPCS: 36415; 80053; 81001; 83690; 85025; 96374; 96375; 99282; 99284; A9270; J1170; 81003; 87086

== ENCOUNTER 2021-03-10 10:48 | Outpatient (CLI) | payer MEDICAID ==
[2021-03-10 18:23] LABS: BASOPHILS # (AUTO) 0.1 10^3/uL (0.0-0.1); BASOPHILS % (AUTO) 0.8 %; EOSINOPHILS # (AUTO) 0.2 10^3/uL (0.0-0.7); EOSINOPHILS % (AUTO) 1.6 %; HCT - HEMATOCRIT 41.1 % (42.0-52.0); HGB - HEMOGLOBIN 13.7 g/dL (14.0-18.0); LYMPHOCYTES # (AUTO) 1.1 10^3/uL (1.5-3.5); LYMPHOCYTES % (AUTO) 11.6 %; MEAN CORPUSCULAR HEMOGLOBIN 30.1 pg (27.0-31.0); MEAN CORPUSCULAR HGB CONC 33.3 g/dL (32.0-36.0); MEAN CORPUSCULAR VOLUME 90.3 fL (80.0-94.0); MONOCYTES # (AUTO) 0.9 10^3/uL (0.0-1.0); MONOCYTES % (AUTO) 9.3 %; NEUTROPHILS # (AUTO) 7.2 10^3/uL (1.5-6.6); NEUTROPHILS % (AUTO) 74.6 %; PLT - PLATELET COUNT 255 10^3/uL (130-450); RED BLOOD COUNT 4.55 10^6/uL (4.70-6.10); RED CELL DISTRIBUTION WIDTH 12.4 % (12.0-15.0); WHITE BLOOD COUNT 9.7 x10^3/uL (4.8-10.8)
[2021-03-10 18:30] LABS: BILIRUBIN,URINE NEGATIVE (NEGATIVE); GLUCOSE, URINE (UA) NEGATIVE (NEGATIVE); KETONES,URINE (UA) NEGATIVE (NEGATIVE); LEUKOCYTE ESTERASE, URINE NEGATIVE (NEGATIVE); NITRITE,URINE NEGATIVE (NEGATIVE); OCCULT BLOOD,URINE NEGATIVE (NEGATIVE); PROTEIN,URINE NEGATIVE (NEGATIVE); UROBILINOGEN,URINE 0.2 (NORMAL) E.U./dL (NORMAL)
[2021-03-10 18:50] LABS: BACTERIA,URINE None Seen /HPF (None Seen); CLARITY,URINE CLEAR (CLEAR); MUCUS,URINE Few Strands; RBC,URINE None Seen /HPF (0-5); SQUAMOUS EPITHELIAL CELL,UR NONE SEEN (<= Few); WBC,URINE 0-3 /HPF (0-3)
[2021-03-10 18:59] LABS: ALBUMIN/GLOBULIN RATIO 0.8 (1.0-2.2); ALKALINE PHOSPHATASE 55 IU/L (42-121); ALT ALANINE AMINOTRANSFERASE 40 IU/L (10-60); AMYLASE 50 U/L (28-100); AST ASPARTATE AMINOTRANSFERASE 30 IU/L (10-42); BILIRUBIN,TOTAL 0.4 mg/dL (0.2-1.0); BUN - BLOOD UREA NITROGEN 10 mg/dL (6-20); CALCIUM 8.6 mg/dL (8.5-10.3); CARBON DIOXIDE - CO2 27 mmol/L (21-32); CHLORIDE 98 mmol/L (101-111); CHOL/HDL RATIO 5.6 (<5.0); CHOLESTEROL 135 mg/dL; CREATININE 0.9 mg/dL (0.6-1.2); GFR - MDRD 85 (>89); GLUCOSE 111 mg/dL (70-100); HDL CHOLESTEROL 24 mg/dL; LDL CHOLESTEROL,CALCULATED 88 mg/dL; LDL/HDL RATIO 3.7 (<3.6); LIPASE 24 U/L (22-51); POTASSIUM 3.9 mmol/L (3.5-5.0); SODIUM 136 mmol/L (135-145); TOTAL PROTEIN 6.9 g/dL (6.7-8.2); TRIGLYCERIDES 115 mg/dL; VLDL CHOLESTEROL 23 mg/dL
[2021-03-10 21:29] LABS: ESTIMATED AVERAGE GLUCOSE 126 mg/dL (70-100)
== END 2021-03-10 10:49 | disposition home or self-care (01) ==
LOC: LAB.N 10:48
PROVIDERS: ATTEND Internal Medicine
DX: K85.91 Acute pancreatitis with uninfected necrosis, unspecified (principal); R73.01 Impaired fasting glucose; N20.0 Calculus of kidney; E55.9 Vitamin D deficiency, unspecified
CPT/HCPCS: 36415; 80053; 80061; 81001; 82150; 82306; 83036; 83690; 83721; 85025; 87086

== ENCOUNTER 2021-03-12 15:05 | Outpatient (CLI) | payer MEDICAID ==
--- NOTE | 2021-03-12 19:29 | Ultrasound Report ---
PROCEDURE: Abdomen Complete INDICATIONS: ACUTE PANCREATITIS W/ UNINFECTED NECROSIS TECHNIQUE: Real-time scanning was performed of the abdominal and retroperitoneal organs, with image documentatio n. COMPARISON: CT abdomen and pelvis 03/02/2021 FINDINGS: Liver: Coarse heterogenous echotexture may reflect hepatic fatty infiltration. Gallbladder: Cholelithiasis with wall thickening measuring up to 7.5 mm. Comet tail artifact in the w all may reflect adenomyomatosis. Biliary ducts: Intrahepatic bile ducts are non-dilated. Extrahepatic bile duct caliber measures 4.4 mm. Normal is 6-7 mm or less in diameter, or 10 mm or less post-cholecystectomy. Pancreas: Heterogenous lobulated edematous pancreas consistent with pancreatitis. Spleen: Enlarged at 13.1 cm without mass lesion. Kidneys: Kidneys are normal in size and echotexture. Right kidney measures 10.4 cm long; left kidne y measures 10.6 cm long. No hydronephrosis or nephrolithiasis. No solid masses. Aorta: Visualized aorta is normal in caliber at less than 3 cm. Iliacs: Proximal common iliac arteries are normal in caliber at less than 2.5 cm. IVC: Intrahepatic inferior vena cava is patent. Miscellaneous: No free abdominal fluid. Study limited by body habitus IMPRESSION: Hepatic fatty infiltration without focal mass lesion Cholelithiasis and gallbladder wall thickening may related to adjacent pancreatitis. Cholecystitis wo uld be a differential. Edematous lobular pancreas consistent with given history of pancreatitis Reviewed by: Shaji Tavares MD on 03/12/2021 6:28 PM AKST Approved by: Shaji Tavares MD on 03/12/2021 6:28 PM AKST Station ID: [id number]
== END 2021-03-12 15:06 | disposition home or self-care (01) ==
LOC: DI 15:05
PROVIDERS: ATTEND Internal Medicine
DX: K85.91 Acute pancreatitis with uninfected necrosis, unspecified (principal); K76.0 Fatty (change of) liver, not elsewhere classified; K80.20 Calculus of gallbladder without cholecystitis without obstruction

== ENCOUNTER 2021-03-23 09:33 | Outpatient (CLI) | payer MEDICAID ==
[2021-03-23] MEDS ORDERED: SINCALIDE 1.8 MCG in SODIUM CHLORIDE 0.9% 50 ML IV ONE (12:56)
--- NOTE | 2021-03-23 14:42 | Nuclear Medicine Report ---
PROCEDURE: Hepatobiliary HIDA w/ Rx INDICATIONS: PANCREATITIS RADIOPHARMACEUTICAL: 5.01 mCi Tc-99m meprofenin i.v. and 1.8 g sincalide i.v. TECHNIQUE: Following intravenous administration of Tc-99m meprofenin, sequential anterior abdominal images were obtained through minutes. To evaluate the contractile response of the gallbladder in response to Cholecystokinin (CCK), microgram sincalide (0.02 g/kg) was administered by slow int ravenous infusion approximately minutes after the administration of the radiopharmaceutical. Seq uential imaging was continued for 30 minutes after the start of CCK infusion. Gallbladder ejection f raction was calculated. COMPARISON: None. FINDINGS: Biliary scan: There is normal tracer uptake and excretion by the liver. There is normal visualizati on of the intrahepatic ducts, common bile duct, and gallbladder. There is normal tracer transit into the duodenum. CCK stimulation: There is normal contractile response of the gallbladder to CCK infusion. The calcu lated gallbladder ejection fraction is 60%; normal values are above 35%. IMPRESSION: 1. Normal biliary imaging study. 2. Normal contractile response of gallbladder to CCK infusion.. Reviewed by: Quin Karimi MD, PhD on 03/23/2021 2:41 PM PST Approved by: Quin Karimi MD, PhD on 03/23/2021 2:41 PM PST Station ID: [id number]
== END 2021-03-23 09:34 | disposition home or self-care (01) ==
LOC: DI 09:33
PROVIDERS: ATTEND Internal Medicine
DX: K85.91 Acute pancreatitis with uninfected necrosis, unspecified (principal)
CPT/HCPCS: 78227; J7040

== ENCOUNTER 2021-04-03 09:56 | Outpatient (CLI) | payer MEDICAID ==
[2021-04-03 11:56] LABS: CREATININE,URINE 161.1 mg/dL; MICROALBUM/CREATININE RATIO,UR 7.4 ug/mg (<30.0); MICROALBUMIN,URINE 1.2 mg/dL (0-300.0)
[2021-04-03 12:40] LABS: ESTIMATED AVERAGE GLUCOSE 128 mg/dL (70-100); HEMOGLOBIN A1c% 6.1 % (4.27-6.07)
[2021-04-03 12:44] LABS: ALBUMIN 3.9 g/dL (3.2-5.5); ALBUMIN/GLOBULIN RATIO 1.1 (1.0-2.2); ALKALINE PHOSPHATASE 51 IU/L (42-121); ALT ALANINE AMINOTRANSFERASE 18 IU/L (10-60); AST ASPARTATE AMINOTRANSFERASE 16 IU/L (10-42); BUN - BLOOD UREA NITROGEN 14 mg/dL (6-20); CALCIUM 8.7 mg/dL (8.5-10.3); CARBON DIOXIDE - CO2 25 mmol/L (21-32); CHLORIDE 102 mmol/L (101-111); CHOL/HDL RATIO 4.4 (<5.0); CHOLESTEROL 195 mg/dL; GFR - MDRD 75 (>89); GLUCOSE 115 mg/dL (70-100); HDL CHOLESTEROL 44 mg/dL; LDL CHOLESTEROL,CALCULATED 135 mg/dL; LDL/HDL RATIO 3.1 (<3.6); POTASSIUM 3.8 mmol/L (3.5-5.0); SODIUM 136 mmol/L (135-145); TOTAL PROTEIN 7.5 g/dL (6.7-8.2); TRIGLYCERIDES 82 mg/dL; VLDL CHOLESTEROL 16 mg/dL
== END 2021-04-03 09:57 | disposition home or self-care (01) ==
LOC: LAB.N 09:56
PROVIDERS: ATTEND Internal Medicine
DX: E78.5 Hyperlipidemia, unspecified (principal); R73.01 Impaired fasting glucose
CPT/HCPCS: 36415; 80053; 80061; 82043; 82570; 83036; 83721

== ENCOUNTER 2021-12-14 10:20 | Outpatient (CLI) | payer MEDICAID ==
[2021-12-14 12:18] LABS: BASOPHILS # (AUTO) 0.1 10^3/uL (0.0-0.1); EOSINOPHILS # (AUTO) 0.1 10^3/uL (0.0-0.7); EOSINOPHILS % (AUTO) 1.7 %; HCT - HEMATOCRIT 46.3 % (42.0-52.0); HGB - HEMOGLOBIN 15.6 g/dL (14.0-18.0); LYMPHOCYTES # (AUTO) 1.4 10^3/uL (1.5-3.5); LYMPHOCYTES % (AUTO) 22.2 %; MEAN CORPUSCULAR HEMOGLOBIN 30.1 pg (27.0-31.0); MEAN CORPUSCULAR HGB CONC 33.7 g/dL (32.0-36.0); MEAN CORPUSCULAR VOLUME 89.2 fL (80.0-94.0); MEAN PLATELET VOLUME 11.7 fL (7.4-11.4); MONOCYTES # (AUTO) 0.6 10^3/uL (0.0-1.0); MONOCYTES % (AUTO) 8.9 %; NEUTROPHILS # (AUTO) 4.2 10^3/uL (1.5-6.6); NEUTROPHILS % (AUTO) 65.7 %; PLT - PLATELET COUNT 219 10^3/uL (130-450); RED BLOOD COUNT 5.19 10^6/uL (4.70-6.10); RED CELL DISTRIBUTION WIDTH 12.5 % (12.0-15.0); WHITE BLOOD COUNT 6.3 x10^3/uL (4.8-10.8)
[2021-12-14 12:47] LABS: ESTIMATED AVERAGE GLUCOSE 134 mg/dL (70-100); HEMOGLOBIN A1c% 6.3 % (4.27-6.07)
[2021-12-14 13:09] LABS: ALBUMIN 4.2 g/dL (3.2-5.5); ALBUMIN/GLOBULIN RATIO 1.4 (1.0-2.2); ALKALINE PHOSPHATASE 55 IU/L (42-121); ALT ALANINE AMINOTRANSFERASE 21 IU/L (10-60); AST ASPARTATE AMINOTRANSFERASE 16 IU/L (10-42); BILIRUBIN,TOTAL 0.9 mg/dL (0.2-1.0); BUN - BLOOD UREA NITROGEN 16 mg/dL (6-20); CHOL/HDL RATIO 4.5 (<5.0); CHOLESTEROL 174 mg/dL; GFR - MDRD 75 (>89); HDL CHOLESTEROL 39 mg/dL; LDL CHOLESTEROL,CALCULATED 108 mg/dL; LDL/HDL RATIO 2.8 (<3.6); TOTAL PROTEIN 7.3 g/dL (6.7-8.2); TRIGLYCERIDES 134 mg/dL; VLDL CHOLESTEROL 27 mg/dL
[2021-12-14 13:19] LABS: CALCIUM 9.1 mg/dL (8.5-10.3); CARBON DIOXIDE - CO2 28 mmol/L (21-32); CHLORIDE 105 mmol/L (101-111); GLUCOSE 108 mg/dL (70-100); POTASSIUM 4.3 mmol/L (3.5-5.0); SODIUM 141 mmol/L (135-145)
== END 2021-12-14 10:21 | disposition home or self-care (01) ==
LOC: LAB.N 10:20
PROVIDERS: ATTEND Internal Medicine
DX: I10 Essential (primary) hypertension (principal); E78.5 Hyperlipidemia, unspecified; R73.01 Impaired fasting glucose
CPT/HCPCS: 36415; 80053; 80061; 83036; 83721; 85025

== ENCOUNTER 2022-06-14 09:27 | Outpatient (CLI) | payer MEDICAID ==
[2022-06-14 13:57] LABS: CREATININE,URINE 207.9 mg/dL; MICROALBUM/CREATININE RATIO,UR 7.2 ug/mg (<30.0); MICROALBUMIN,URINE 1.5 mg/dL (0-300.0)
[2022-06-14 14:13] LABS: BUN - BLOOD UREA NITROGEN 15 mg/dL (6-20); CALCIUM 8.7 mg/dL (8.5-10.3); CARBON DIOXIDE - CO2 25 mmol/L (21-32); CHLORIDE 108 mmol/L (101-111); CHOL/HDL RATIO 4.7 (<5.0); CHOLESTEROL 191 mg/dL; GFR - MDRD 75 (>89); GLUCOSE 123 mg/dL (70-100); HDL CHOLESTEROL 41 mg/dL; LDL CHOLESTEROL,CALCULATED 118 mg/dL; LDL/HDL RATIO 2.9 (<3.6); SODIUM 139 mmol/L (135-145); TRIGLYCERIDES 158 mg/dL; VLDL CHOLESTEROL 32 mg/dL
[2022-06-14 14:35] LABS: ESTIMATED AVERAGE GLUCOSE 134 mg/dL (70-100); HEMOGLOBIN A1c% 6.3 % (4.27-6.07)
== END 2022-06-14 09:28 | disposition home or self-care (01) ==
LOC: LAB.N 09:27
PROVIDERS: ATTEND Internal Medicine
DX: R73.03 Prediabetes (principal); E78.5 Hyperlipidemia, unspecified; Z12.5 Encounter for screening for malignant neoplasm of prostate
CPT/HCPCS: 36415; 80048; 80061; 82043; 82570; 83036; 83721; 84153

== ENCOUNTER 2022-11-15 09:59 | Outpatient (CLI) | payer MEDICAID, MEDICARE ==
[2022-11-15 12:16] LABS: ALBUMIN 4.2 g/dL (3.2-5.5); ALBUMIN/GLOBULIN RATIO 1.4 (1.0-2.2); ALKALINE PHOSPHATASE 67 IU/L (42-121); ALT ALANINE AMINOTRANSFERASE 17 IU/L (10-60); AST ASPARTATE AMINOTRANSFERASE 13 IU/L (10-42); BILIRUBIN,TOTAL 0.7 mg/dL (0.2-1.0); BUN - BLOOD UREA NITROGEN 14 mg/dL (6-20); CALCIUM 9.3 mg/dL (8.5-10.3); CARBON DIOXIDE - CO2 25 mmol/L (21-32); CHLORIDE 106 mmol/L (101-111); CHOL/HDL RATIO 3.2 (<5.0); CHOLESTEROL 128 mg/dL; GFR - MDRD 75 (>89); GLUCOSE 118 mg/dL (74-104); HDL CHOLESTEROL 40 mg/dL; LDL CHOLESTEROL,CALCULATED 62 mg/dL; LDL/HDL RATIO 1.6 (<3.6); POTASSIUM 4.2 mmol/L (3.5-4.5); SODIUM 138 mmol/L (135-145); TOTAL PROTEIN 7.3 g/dL (6.4-8.9); TRIGLYCERIDES 132 mg/dL (48-352); VLDL CHOLESTEROL 26 mg/dL
[2022-11-15 12:32] LABS: ESTIMATED AVERAGE GLUCOSE 134 mg/dL (70-100); HEMOGLOBIN A1c% 6.3 % (4.27-6.07)
== END 2022-11-15 10:00 | disposition home or self-care (01) ==
LOC: LAB.N 09:59
PROVIDERS: ATTEND Internal Medicine
DX: E78.5 Hyperlipidemia, unspecified (principal); R73.03 Prediabetes
CPT/HCPCS: 36415; 80053; 80061; 83036; 83721

== ENCOUNTER 2023-07-25 09:16 | Outpatient (CLI) | payer MEDICARE, MEDICAID ==
[2023-07-25 12:39] LABS: ESTIMATED AVERAGE GLUCOSE 140 mg/dL (70-100); HEMOGLOBIN A1c% 6.5 % (4.27-6.07)
[2023-07-25 12:45] LABS: ALBUMIN/GLOBULIN RATIO 1.4 (1.0-2.2); ALKALINE PHOSPHATASE 59 IU/L (42-121); ALT ALANINE AMINOTRANSFERASE 23 IU/L (10-60); AST ASPARTATE AMINOTRANSFERASE 15 IU/L (10-42); BILIRUBIN,TOTAL 0.6 mg/dL (0.2-1.0); BUN - BLOOD UREA NITROGEN 15 mg/dL (6-20); CALCIUM 9.1 mg/dL (8.5-10.3); CARBON DIOXIDE - CO2 27 mmol/L (21-32); CHLORIDE 106 mmol/L (101-111); CHOL/HDL RATIO 3.4 (<5.0); CHOLESTEROL 121 mg/dL; GFR - MDRD 75 (>89); GLUCOSE 127 mg/dL (74-104); HDL CHOLESTEROL 36 mg/dL; LDL CHOLESTEROL,CALCULATED 60 mg/dL; LDL/HDL RATIO 1.7 (<3.6); POTASSIUM 4.3 mmol/L (3.5-4.5); SODIUM 137 mmol/L (135-145); TOTAL PROTEIN 6.9 g/dL (6.4-8.9); TRIGLYCERIDES 123 mg/dL (48-352); VLDL CHOLESTEROL 25 mg/dL
== END 2023-07-25 09:17 | disposition home or self-care (01) ==
LOC: LAB.N 09:16
PROVIDERS: ATTEND Internal Medicine
DX: I10 Essential (primary) hypertension (principal); R73.03 Prediabetes; Z12.5 Encounter for screening for malignant neoplasm of prostate
CPT/HCPCS: 36415; 80053; 80061; 83036; G0103; 83721; 84153

== ENCOUNTER 2023-08-23 10:34 | Day surgery (SDC) | payer MEDICARE, MEDICAID ==
[~2023-08-23 10:34] MED LIST changes: -BUPIVACAINE 0.5% PF 30 ML VIAL ONE; +PROPOFOL 500 MG/50 ML 500 MG/50 ML VIAL ONE; -ceFAZolin 2 GM/50 ML 2 GM/50 ML BAG IV ONE
[2023-08-23] MEDS: LACTATED RINGERS 1,000 ML IV ONE (10:35)
--- NOTE | 2023-08-23 11:16 | ANESTHESIA ---
Pre-Anesthesia VS, & Labs - Diagnosis screening - Procedure colonoscopy Vital Signs: Temp Pulse Resp BP Pulse Ox O2 Flow Rate 36 C L 69 18 120/66 96 08/23/23 10:44 08/23/23 10:44 08/23/23 10:44 08/23/23 10:44 08/23/23 10:44 Height: 36 ft Weight (kg): 98.6 kg Body Mass Index: 0.8 BMI Classification: Underweight - NPO Last Fluid Intake: 0700 Last Food Intake: >8hr - Lab Results Lab results reviewed: Yes Home Medications and Allergies Home Medications: Ambulatory Orders Simvastatin [Zocor] 20 mg ORAL DAILY 08/22/23 Valsartan 320 mg ORAL DAILY 08/22/23 Metoprolol Succinate 100 mg PO DAILY 07/14/17 Simvastatin [Zocor] 20 mg ORAL DAILY 08/22/23 Valsartan 320 mg ORAL DAILY 08/22/23 Allergies/Adverse Reactions: Allergies Allergy/AdvReac Type Severity Reaction Status Date / Time Bleach (Sodium Hypochlorite) Allergy Severe Anaphylaxis Verified 04/29/21 06:36 Anes History & Medical History - Anesthetic History Anesthesia Complications: reports: No previous complications - Medical History Cardiovascular: reports: Hypertension (metoprolol this am; denies, cp/sob, mi, arrhythmia), High cholesterol Pulmonary: reports: None Gastrointestinal: reports: None Urinary: reports: None Musculoskeletal: reports: None Endocrine/Autoimmune: reports: None Blood Disorders: reports: None Skin: reports: None Smoking Status: Current every day smoker (40 years) - Surgical History General: reports: Cholecystectomy Dermatologic: reports: Debridement Results - EKG Results EKG Comparison: Reviewed EKG Exam General: Alert, Oriented x3 Dental: Dentures full Upper, Dentures full Lower Mouth Openin Fingerbreadth Neck Mobility: Normal Mallampati classification: II Thyromental Distance: 4-6 cm Plan Anesthesia Type: Total IV Consent for Procedure(s) Verified and Reviewed: Yes Code Status: Attempt Resuscitation ASA classification: 2-Mild systemic disease Is this case an emergency?: No
--- NOTE | 2023-08-23 11:31 | HISTORY & PHYSICAL EXAMINATION ---
PMH/PSH - Past Medical History Cardiovascular: positive: Hypertension (metoprolol this am; denies, cp/sob, mi, arrhythmia), High cholesterol Respiratory: positive: None Endocrine/Autoimmune: positive: None GI: positive: None : positive: None HEENT: positive: None Psych: positive: None Musculoskeletal: positive: None Derm: positive: None MRSA Hx?: No - Past Surgical History General: positive: Cholecystectomy Derm: positive: Debridement Social & Family Hx - Social History Does the pt smoke?: Yes Smoking Status: Current every day smoker (40 years) Does the pt drink ETOH?: No Does the pt have substance abuse?: No - POLST Patient has POLST: No Meds/Allgy - Home Medications Home Medications: Ambulatory Orders Medication Instructions Recorded Confirmed Metoprolol Succinate 100 mg PO DAILY 07/14/17 08/23/23 Simvastatin [Zocor] 20 mg ORAL DAILY 08/22/23 08/22/23 Valsartan 320 mg ORAL DAILY 08/22/23 08/23/23 - Allergies Allergies/Adverse Reactions: Allergies Allergy/AdvReac Type Severity Reaction Status Date / Time Bleach (Sodium Hypochlorite) Allergy Severe Anaphylaxis Verified 04/29/21 06:36 Exam - Vital Signs Vital Signs: Vital Signs x48h Temp Pulse Resp BP Pulse Ox 08/23/23 10:44 96.8 F L 69 18 120/66 96 Impression/Plan - Problem List Problem List: Pre-op H&P I am asked to see Dalton for a screening colonoscopy examination. GI symptoms: Family history of colon cancer/polyps: No Personal history of colon polyps: No Last colonoscopy examination: 10 yrs ago Anticoagulant use: No The Past Family, Social and Personal History has been reviewed with the patient. ROS Denies fevers, chills, night sweats, shortness of breath, chest pain, change in the color of skin or urine, diarrhea, constipation, hematemesis, hematochezia, headache, visual changes, muscle aches. PE VSS, Afeb HEENT: Pupils equal, round and reactive to light, sclera anicteric, normal hearing, oral mucous membranes moist and without lesions NECK: Supple without lymphadenopathy, thyromegaly or carotid bruits LUNGS: Clear to auscultation without wheezing HEART: NSR without murmurs CHEST: Equal and symmetric expansion, no rib pain ABD: Soft, nontender, no hepatosplenomegaly, no hernias GROIN: No hernias or lymphadenopathy EXTREMITIES: Normal neuro and muscular exam SKIN: Anicteric Radiologic Studies N/A Assessment: Request for a screening colonoscopy examination. Plan: Screening colonoscopy under sedation through the Day Surgery admission protocol at [facility]. Consent: Dalton has been counseled for the procedure, it's indications, risks, benefits and expected outcome as well as alternative therapies. We specifically discussed risks associated with anesthesia and insertion of the endoscope into the large intestine which includes bleeding and injury to the colon which may require surgical intervention. Dalton understands, agrees, and consents to the proposed operative strategy and requests that we proceed with the procedure as outlined in our discussion. Jhonatan Whitmore MD, FACS General Surgery Service
[2023-08-23] MEDS ORDERED: ePHEDrine 50 MG/ML VIAL IVP ONE (11:50)
[2023-08-23 12:28] VITALS: O2SAT 97
[2023-08-23 12:38] VITALS: BP 132/69
--- NOTE | 2023-08-23 15:40 | ANESTHESIA POST OP EVALUATION ---
Anesthesia Post Eval - Post Anesthesia Eval Vitals: Last Vital Signs Temp 36.3 C L 08/23/23 12:23 Pulse 75 08/23/23 12:23 Resp 16 08/23/23 12:23 BP 132/69 H 08/23/23 12:23 Pulse Ox 97 08/23/23 12:23 O2 Flow Rate CV Function Including HR & BP: Stable Pain Control: Satisfactory Nausea & Vomiting: Negative Mental Status: Baseline Respiratory Status: Airway Patent Hydration Status: Satisfactory Anesthesia Complications: None
== END 2023-08-23 10:35 | disposition home or self-care (01) ==
LOC: SDS 10:34
PROVIDERS: ATTEND Surgery
PROC: 0DBN8ZZ Excision of Sigmoid Colon, Via Natural or Artificial Opening Endoscopic (ICD-10-PCS; principal; 2023-08-23 11:30)
DX: Z12.11 Encounter for screening for malignant neoplasm of colon (principal); K63.5 Polyp of colon; I10 Essential (primary) hypertension; F17.200 Nicotine dependence, unspecified, uncomplicated
CPT/HCPCS: 45380; J7120

== ENCOUNTER 2023-10-24 12:35 | Outpatient (CLI) | payer MEDICARE, MEDICAID | END 2023-10-24 12:36 | disposition EMS.NT | LOC: EMS 12:35 | DX: S80.211A Abrasion, right knee, initial encounter (principal); W01.0XXA Fall on same level from slipping, tripping and stumbling without subsequent striking against object, initial encounter; Y93.01 Activity, walking, marching and hiking; Y92.410 Unspecified street and highway as the place of occurrence of the external cause ==